=== PATIENT | male | born 1955 | race Caucasian/White ===

== ENCOUNTER 2020-09-21 15:23 | Observation (INO) | payer SELFPAY ==
--- NOTE | 2020-09-21 15:36 | ER Document Report ---
ED Medical Screen (RME) - General Chief Complaint: Numbness Stated Complaint: NUMBNESS ON LEFT SIDE OF BODY Time Seen by Provider: 09/21/20 15:26 - HPI Notes: 09/21/20 15:34 65-year-old female with past medical history of hypertension, hyperlipidemia, diabetes to the emergency department with with complaints of acute onset of left-sided numbness and tingling in his arm and leg as well as some weakness in his arm. states that this started about an hour and a half ago. She also felt like his speech was at times garbled. The patient does state that he feels like some of the weakness in his left arm has improved since his ride over here. He has never had a stroke before. He is on any blood thinners. Brief medical screening exam reveals no facial palsy, no decreased sensation with palpation of the face. No facial droop. Tongue appears to be deviated to the left. No pronator drift. Normal vjeoxo-up-avzm bilaterally. No leg drift. No dysarthria or slurred speech. Patient is alert and oriented x4. Handgrip is 5 out of 5. Strength in bilateral upper extremity and lower extremity is 5 out of 5 against resistance. He does admit to paresthesias in the left upper extremity and left lower leg. I advised charge of the patient and we sent the patient directly down to head CT. I also updated my ER attending,Dr. Lutz. Patient will be bedded directly to bed [address] NIH score of 1. I performed a brief medical screening exam on the patient determined that the patient needs further evaluation and management by main side provider. I have placed initial orders to help expedite care.
--- NOTE | 2020-09-21 15:48 | RADIOLOGY REPORT (SQ) ---
EXAM DESCRIPTION: CT HEAD WITHOUT IMAGES COMPLETED DATE/TIME: 09/21/2020 3:40 pm REASON FOR STUDY: left side weakness COMPARISON: None. TECHNIQUE: Axial images acquired through the brain without intravenous contrast. Images reviewed wi th bone, brain and subdural windows. Additional sagittal and coronal reconstructions were generated. Images stored on PACS. All CT scanners at this facility use dose modulation, iterative reconstruction, and/or weight based d osing when appropriate to reduce radiation dose to as low as reasonably achievable (ALARA). [facility]: Dose Right [facility]: CareDose [facility]: Dose Right [facility]: Teradose 4D [facility]: [employer] Technologies RADIATION DOSE: CT Rad equipment meets quality standard of care and radiation dose reduction techniq ues were employed. CTDIvol: 53.2 mGy. DLP: 1017 mGy-cm. mGy. LIMITATIONS: None. FINDINGS: VENTRICLES: Normal size and contour. CEREBRUM: No masses. No hemorrhage. No midline shift. Small lacunar infarction in the anterior mcleod b of the internal capsule on the right. No evidence for acute infarction. Normal mays/white matter d ifferentiation. No areas of low density in the white matter. CEREBELLUM: No masses. No hemorrhage. No alteration of density. No evidence for acute infarction. EXTRAAXIAL SPACES: No fluid collections. No masses. ORBITS AND GLOBE: No intra- or extraconal masses. Normal contour of globe without masses. CALVARIUM: No fracture. PARANASAL SINUSES: No fluid or mucosal thickening. SOFT TISSUES: No mass or hematoma. OTHER: No other significant finding. IMPRESSION: Old right lacunar infarction. No acute intracranial imaging findings. EVIDENCE OF ACUTE STROKE: NO. COMMENT: Quality ID # [id number]: Final reports with documentation of one or more dose reduction techniques (e.g., Automated exposure control, adjustment of the mA and/or kV according to patient size, use of iterative reconstruction technique) TECHNICAL DOCUMENTATION: JOB ID: [id number] 2010 [employer]- All Rights Reserved Reading location - IP/workstation name: [email or web address]
--- NOTE | 2020-09-21 15:55 | ER Document Report ---
ED Neuro Symptoms/Deficit - General Chief Complaint: S/S of Possible Stroke Stated Complaint: NUMBNESS ON LEFT SIDE OF BODY Time Seen by Provider: 09/21/20 15:26 - HPI Notes: Patient is a 65-year-old male with a past medical history of diabetes, hypertension, high cholesterol who presents with left upper and lower extremity tingling. Patient states symptoms began at 1:00pm. He states he began with left lower leg tingling that felt like his leg fell asleep. Then he developed left arm tingling. He states he has tingling to his upper lip. The tingling in his leg and arm have completely resolved. He states he feels still some tingling in his upper lip. He denies any speech changes. No headache or lightheadedness. No dizziness. No chest pain or shortness of breath. Does not think he has had a stroke before. He is not on any blood thinners. Patient's NIH is 1 for tingling. He states he still has some tingling to his upper lip but no numbness to his face. He is not a TPA candidate due to low NIH and resolving symptoms. - Related Data Allergies/Adverse Reactions: No Known Allergies Allergy (Unverified 09/21/20 15:41) Past Medical History - General Information source: Patient - Social History Smoking Status: Never Smoker Chew tobacco use (# tins/day): No Frequency of alcohol use: None Drug Abuse: None Family History: Reviewed & Not Pertinent Patient has homicidal ideation: No Review of Systems - Review of Systems Notes: CONSTITUTIONAL: No fever, fatigue or weight loss. SKIN: No rash. HENT: No congestion, ear pain, or sore throat. EYES: No recent vision problems or eye pain. CARDIOVASCULAR: No chest pain or edema. RESPIRATORY: No cough, shortness of breath, congestion, or wheezing. GASTROINTESTINAL: No abdominal pain, nausea, vomiting, bloody stools or diarrhea. GENITOURINARY: No dysuria. MUSCULOSKELETAL: No joint pain or swelling. NEUROLOGIC: No seizures. No headache, focal weakness or sensory changes. Positive for tingling in left upper and left lower extremity. Positive for tingling in upper lip. HEMATOLOGIC: No unusual bruising or bleeding. PSYCHIATRIC: No depression or anxiety. Physical Exam - General General appearance: Appears well Notes: VITAL SIGNS: Within normal limits. GENERAL: No acute distress, non-toxic appearance. HEAD: Normal with no signs of head trauma. EYES: EOMI, conjunctiva normal, no discharge. EARS: Hearing grossly intact. NOSE: Normal. NECK: Normal range of motion, no tenderness, supple, no lymphadenopathy, No adenopathy, no JVD. CHEST: Clear breath sounds bilaterally. No wheezes, rales, or rhonchi. CARDIAC: Regular rate and rhythm. S1 and S2, without murmurs, gallops, or rubs. VASCULAR: No Edema. Peripheral pulses normal and equal in upper extremities. ABDOMEN: Normal and soft with no tenderness, no masses MUSCULOSKELETAL: Good range of motion of all major joints. Extremities without clubbing, cyanosis or edema. NEUROLOGICAL: Alert and oriented x 3. No focal sensory or strength deficits. Speech normal. Follows commands appropriately. NIH is 1. PSYCHIATRIC: Normal Affect, judgement and mood. SKIN: Normal appearance with no rashes or lesions. Course - Re-evaluation Re-evalutation: 09/21/20 19:17 Patient states his speech is normal. He states he only has residual tingling to his upper lip. Head CT shows an old lacunar stroke which I informed him of. His is now here, she states that she thought he did have some mild speech changes but it is improving. Patient is not a TPA candidate due to low NIH and improving symptoms. I did recommend he obtain an MRI and stay in the hospital for a stroke/TIA evaluation. Patient and his are in agreement. I discussed with the hospitalist for admission. Patient continues to complain of tingling to his upper lip but no other symptoms. - Laboratory Result Diagrams: 09/21/20 15:41 09/21/20 15:41 - Diagnostic Test Radiology reviewed: Image reviewed, Reports reviewed - EKG Interpretation by Me EKG shows normal: Sinus rhythm Rate: Normal Rhythm: NSR When compared to previous EKG there are: Previous EKG unavailable ED NIH Stroke Scale - NIH Stroke Scale When completed:: Protocol *: 1. NIH scale should be completed with appropriate accompanying assessment tools. *: 2. The NIH should reflect what the patient is capable of doing and should not be coached by the clinician. 1a. Level of Consciousness: 0=Alert;keenly responsive -: 1=Drowsy -: 2=Obtunded -: 3=Coma/unresponsive or reflex to noxious stimuli. 1a. Responses: 0 1b. Orientation Questions: a. What month is it? -: b. How old are you? -: 0=Answers both questions correctly. -: 1=Answers one question correctly or patient is intubated or has orotracheal trauma. -: 2=Answers neither question correctly. 1b. Responses: 0 1c. Response to commands: a. Open and close eyes? -: b. Nut Grader and release hand? -: Credit is given despite weakness. Demonstration of task is permitted. Substitute command if hands cannot be used. -: 0=Performs both tasks correctly -: 1=Performs one task correctly -: 2=Performs neither task correctly 1c. Responses: 0 2. Gaze: Establish eye contact and instruct patient to "Follow my finger" -: 0=Normal -: 1=Partial gaze palsy. Gaze is abnormal in one or both eyes, but where forced deviation or total gaze paresis is not present. -: 2=Forced deviation or total gaze paresis. 2. Responses: 0 3. Visual Jack: Sees fingers in all four quadrants. -: 0=No visual loss. -: 1=Partial hemianopsia. -: 2=Complete hemianopsia. -: 3=Bilateral hemianopsia (including Cortical blindness) 3. Responses: 0 4. Facial Movement: Instruct patient to: -: a. Show me your teeth -: b. Raise your eyebrows -: c. Close your eyes -: d. Smile -: 0=Normal symmetrical movement -: 1=Minor paralysis (flattened nasolabial fold, asymmetry on smiling). -: 2=Partial paralysis (total or near total paralysis of lower face). -: 3=Complete paralysis of upper and lower face 4. Responses: 0 5. Motor functions (left arm): Alternate sides and extend each arm with palms down (90 degrees if sitting or 45 degrees for supine). -: 0=No drift;limb holds for full 10 seconds. -: 1=Drift; limb holds but drifts down before full 10 seconds, but does not hit bed. -: 2=Some effort against gravity; limb cannot get to or maintain position. -: 3=No effort against gravity; limb falls. -: 4=No movement. -: UN=Amputation, joint fusion, explain in comments. 5. Responses (left arm): 0 5. Motor Functions (right arm): Alternate sides and extend each arm with palms down (90 degrees if sitting or 45 degrees for supine). -: 0=No drift;limb holds for full 10 seconds. -: 1=Drift; limb holds but drifts down before full 10 seconds, but does not hit bed. -: 2=Some effort against gravity; limb cannot get to or maintain position. -: 3=No effort against gravity; limb falls. -: 4=No movement. -: UN=Amputation, joint fusion, explain in comments. 5. Responses (right arm): 0 6. Motor Functions (left leg): With patient lying supine, alternate sides and extend each leg (30 degrees always while supine). -: 0=No drift, leg holds position for full 5 seconds -: 1=Drift; leg falls before full 5 seconds but does not hit bed. -: 2=Some effort against gravity, leg falls to bed but some effort against gravity. -: 3=No effort against gravity, leg falls to bed immediately. -: 4=No movement. -: UN=Amputation, joint fusion; explain in comments. 6. Responses (left leg): 0 6. Motor Functions (right leg): With patient lying supine, alternate sides and extend each leg (30 degrees always while supine). -: 0=No drift, leg holds position for full 5 seconds -: 1=Drift; leg falls before full 5 seconds but does not hit bed. -: 2=Some effort against gravity, leg falls to bed but some effort against gravity. -: 3=No effort against gravity, leg falls to bed immediately. -: 4=No movement. -: UN=Amputation, joint fusion; explain in comments. 6. Responses (right leg): 0 7. Limb Ataxia: With eyes open instruct patient to: -: a. "Touch your finger to your nose". -: b. "Touch your heel to your mcdonald" -: 0=Absent -: 1=Present in one limb. -: 2=Present in two limbs. -: UN=Amputation or joint fusion; explain in comments. 7. Responses: 0 8. Sensory: Test sensation using pinprick or noxious stimuli. Test as many body parts as possible. -: 0=Normal;no sensory loss -: 1=Mile to moderate sensory loss (patient feels pin prick but is less sharp on affected side). -: 2=Severe or total sensory loss. 8. Responses: 1 9. Best Language: Instruct patient to: -: a. "Describe what you see in this picture." -: b. "Name the items in this picture." -: c. "Read these sentences." -: 0=No aphasia, normal -: 1=Mild to moderate aphasia. -: 2=Severe aphasia -: 3=Mute, global aphasia, no usable speech or auditory comprehension. 9. Responses: 0 10. Articulation, Dysarthia: Instruct patient to: -: "Read these words" or "Repeat these words" -: 0=Normal -: 1=Mild to moderate; patient may slur some words but can be understood without difficulty. -: 2=Severe; patients speech so slurred as to be unintelligible in the absence of dysphasia. -: UN=Intubated or other physical barrier, explain in comments. 10. Responses: 0 11. Extinction or inattention: 0=No abnormality -: 1= Visual, tactile, auditory, spatial, or personal inattention or extinction to bilateral simulation in one or the sensory modalities. -: 2=Profound deidra-inattention or deidra-inattention to more than one modality; does not recognize own hand. 11. Responses: 0 Total Score: 1 Discharge - Discharge Clinical Impression: Stroke-like symptom, Paresthesia Disposition: ADMITTED OBSERVATION Admitting Provider: Gabriella (Hospitalist) Unit Admitted: Telemetry
[2020-09-21 16:12] LABS: ABSOLUTE EOSINOPHILS # (AUTO) 0.1 10^3/uL (0.0-0.6); ABSOLUTE LYMPHOCYTES (AUTO) 1.4 10^3/uL (0.5-4.7); ABSOLUTE MONOCYTES (AUTO) 0.6 10^3/uL (0.1-1.4); ABSOLUTE NEUT (AUTO) 5.2 10^3/uL (1.7-8.2); BASOPHILS % (AUTO) 0.6 % (0-2); EOSINOPHILS % (AUTO) 1.2 % (0-6); HEMATOCRIT 43.2 % (37.9-51.0); HEMOGLOBIN 14.8 g/dL (13.5-17.0); LYMPHOCYTES % (AUTO) 19.4 % (13-45); MEAN CORPUSCULAR HEMOGLOBIN 28.1 pg (27.0-33.4); MEAN CORPUSCULAR HGB CONC 34.3 g/dL (32.0-36.0); MEAN CORPUSCULAR VOLUME 82 fl (80-97); MONOCYTES % (AUTO) 8.1 % (3-13); PLATELET COUNT 200 10^3/uL (150-450); RED BLOOD COUNT 5.27 10^6/uL (4.35-5.55); RED CELL DISTRIBUTION WIDTH 13.6 % (11.5-14.0); SEGMENTED NEUTROPHILS % (AUTO) 70.7 % (42-78); TOTAL CELLS COUNTED % (AUTO) 100 %; WHITE BLOOD COUNT 7.3 10^3/uL (4.0-10.5)
[2020-09-21 16:19] LABS: INTERNATIONAL RATION (INR) 0.97; PROTHROMBIN TIME 13.1 SEC (11.4-15.4)
[2020-09-21 16:20] LABS: PARTIAL THROMBOPLASTIN TIME 30.8 SEC (23.5-35.8)
[2020-09-21 16:35] LABS: ALBUMIN 4.7 g/dL (3.5-5.0); ALKALINE PHOSPHATASE 48 U/L (38-126); ANION GAP 9 (5-19); ASPARTATE AMINO TRANSFERASE 34 U/L (17-59); BILIRUBIN,DIRECT 0.2 mg/dL (0.0-0.4); BILIRUBIN,TOTAL 0.5 mg/dL (0.2-1.3); BLOOD UREA NITROGEN 19 mg/dL (7-20); CALCIUM 9.7 mg/dL (8.4-10.2); CARBON DIOXIDE 29 mmol/L (22-30); CHLORIDE 99 mmol/L (98-107); GLUCOSE 208 mg/dL (75-110); POTASSIUM 3.8 mmol/L (3.6-5.0); TOTAL PROTEIN 7.8 g/dL (6.3-8.2)
--- NOTE | 2020-09-21 16:44 | RADIOLOGY REPORT (SQ) ---
EXAM DESCRIPTION: CHEST SINGLE VIEW IMAGES COMPLETED DATE/TIME: 09/21/2020 4:07 pm REASON FOR STUDY: LEFT SIDE WEAKNESS COMPARISON: None. EXAM PARAMETERS: NUMBER OF VIEWS: One view. TECHNIQUE: Single frontal radiographic view of the chest acquired. RADIATION DOSE: NA LIMITATIONS: None. FINDINGS: LUNGS AND PLEURA: No opacities, masses or pneumothorax. No pleural effusion. MEDIASTINUM AND HILAR STRUCTURES: No masses. Contour normal. HEART AND VASCULAR STRUCTURES: Heart normal in size. Normal vasculature. BONES: No acute findings. HARDWARE: None in the chest. OTHER: No other significant finding. IMPRESSION: NO ACUTE RADIOGRAPHIC FINDING IN THE CHEST. TECHNICAL DOCUMENTATION: JOB ID: [id number] 2010 [employer]- All Rights Reserved Reading location - IP/workstation name: [email or web address]
--- NOTE | 2020-09-21 17:46 | EKG REPORT ---
SEVERITY:- NORMAL ECG - SINUS RHYTHM : Confirmed by: Fermín Neil MD 21-Sep-2020 17:45:37
[2020-09-21] MEDS ORDERED: ACETAMINOPHEN 325 MG TABLET PO PRN (18:09)
[2020-09-21] MEDS ORDERED: ONDANSETRON HCL INJ/PF 4 MG/2 ML SDV IV PRN (18:09)
[2020-09-21] MEDS ORDERED: ONDANSETRON 4 MG TAB.RAPDIS PO PRN (18:09)
[2020-09-21] MEDS ORDERED: CLOPIDOGREL BISULFATE 75 MG TABLET PO SCH (18:15)
[2020-09-21] MEDS ORDERED: CLOPIDOGREL BISULFATE 300 MG TABLET PO ONE (18:19)
--- NOTE | 2020-09-21 18:29 | PDOC H&P ---
History of Present Illness Admission Date/PCP: 09/21/20 18:09 History of Present Illness: LIBAN PRETTY is a 65 year old male with past medical history significant for HTN, HLD, T2DM, LAVELL on CPAP who presents ED with a 1 day history of progressive slurred speech/left facial numbness and droop/LUE and LLE numbness and weakness/ataxia. Patient and his deny him ever having these symptoms in the past. On arrival to the ED he underwent a dry head CT which showed an old lacunar infarct but nothing acute. MRI is ordered and pending. His sugars were initially approximately 200 but patient states his blood sugars generally well controlled and denies any significant drops or rises in blood sugar recently. He only takes Metformin for his diabetes. He denies any sick contacts or fever/chills/nausea/vomiting/pain. EKG showed normal sinus rhythm. Chest x-ray showed no acute findings. Patient takes a daily 81 mg aspirin and denies missing any doses of this. He denies history of A. fib and is not on anticoagulant. Patient mated for further work-up of possible stroke. Past Medical History Cardiac Medical History: Reports: Hyperlipidema, Hypertension Pulmonary Medical History: Reports: Sleep Apnea Endocrine Medical History: Reports: Diabetes Mellitus Type 2 Past Surgical History Past Surgical History: Reports: Other - Uvulopalatopharyngoplasty Social History Information Source: Patient, Relative, Emergency Med Personnel Lives with: Family Smoking Status: Never Smoker Electronic Cigarette use?: No Frequency of Alcohol Use: None Hx Recreational Drug Use: No - Advance Directive Resuscitation Status: Full Code Surrogate healthcare decision maker:: Admitting diagnosis: Suspected acute CVA All aspects of code status discussed with patient/POA including cardioversion, chest compressions, and intubation and the patient/POA indicated they wish to be full code MPOA is designated as: Lynette Time spent: Greater than 16 minutes Family History Family History: Reviewed & Not Pertinent, Malignancy Parental Family History Reviewed: Yes Children Family History Reviewed: Yes Sibling(s) Family History Reviewed.: Yes Medication/Allergy Allergies/Adverse Reactions: No Known Allergies Allergy (Unverified 09/21/20 15:41) Review of Systems All systems: reviewed and no additional remarkable complaints except as stated - Per HPI otherwise negative Physical Exam Vital Signs: Temp Pulse Resp BP Pulse Ox 98.6 F 70 16 138/83 H 99 09/21/20 15:51 09/21/20 15:24 09/21/20 18:01 09/21/20 18:01 09/21/20 15:24 Intake & Output 09/20/20 09/21/20 09/22/20 06:59 06:59 06:59 Weight 130.9 kg Exam: General appearance: PRESENT: no acute distress, well-developed, well-nourished, morbidly obese white male with BMI 38.1 Head exam: PRESENT: atraumatic, normocephalic Eye exam: PRESENT: conjunctiva pink. ABSENT: scleral icterus Mouth exam: PRESENT: moist Respiratory exam: PRESENT: clear to auscultation sherley. ABSENT: rales, rhonchi, wheezes Cardiovascular exam: PRESENT: RRR. ABSENT: diastolic murmur, rubs, systolic murmur GI/Abdominal exam: PRESENT: normal bowel sounds, soft. ABSENT: distended, guarding, mass, organolmegaly, rebound, tenderness Neurological exam: PRESENT: alert, awake, oriented to person, oriented to place, oriented to time, oriented to situation; cranial nerves II through XII grossly intact except mild subtle left facial droop noted corner of his mouth and mild slurred speech, strength 5/5 upper and lower extremities equal bilaterally, sensation grossly intact with the exception of his upper lip which is numb Psychiatric exam: PRESENT: appropriate affect, normal mood Skin exam: PRESENT: dry, intact, warm Results Laboratory Results: 09/21/20 15:41 09/21/20 15:41 09/21/20 09/21/20 15:41 15:41 WBC 7.3 RBC 5.27 Hgb 14.8 Hct 43.2 MCV 82 MCH 28.1 MCHC 34.3 RDW 13.6 Plt Count 200 Seg Neutrophils % 70.7 Sodium 136.8 L Potassium 3.8 Chloride 99 Carbon Dioxide 29 Anion Gap 9 BUN 19 Creatinine 1.23 Est GFR ( Amer) > 60 Glucose 208 H Calcium 9.7 Total Bilirubin 0.5 AST 34 Alkaline Phosphatase 48 Total Protein 7.8 Albumin 4.7 09/21/20 15:41 Troponin I < 0.012 Impressions: Chest X-Ray 09/21/20 00:00 IMPRESSION: NO ACUTE RADIOGRAPHIC FINDING IN THE CHEST. Head CT 09/21/20 15:26 IMPRESSION: Old right lacunar infarction. No acute intracranial imaging findings. EVIDENCE OF ACUTE STROKE: NO. Assessment and Plan - Diagnosis (1) Stroke-like symptom Is this a current diagnosis for this admission?: Yes Plan: -Admitted for CVA rule out -NIHSS on Admit: 0 per ED note -tPA not given, outside of time window -ASA, Statin, Plavix as patient was already on 81 mg aspirin daily prior to event -Lipid Panel -Carotid PVL -TTE -CT Head old lacunar stroke, no acute findings -MRI Brain pending -Permissive HTN goal < 220/120 for 48hrs post-sx's onset or until CVA ruled out (2) HTN (hypertension) Is this a current diagnosis for this admission?: Yes Plan: Permissive hypertension as above (3) HLD (hyperlipidemia) Is this a current diagnosis for this admission?: Yes Plan: Statin (4) T2DM (type 2 diabetes mellitus) Qualifiers: Diabetes mellitus lobsterman insulin use: without lobsterman use Diabetes mellitus complication status: with hyperglycemia Qualified Code(s): E11.65 - Type 2 diabetes mellitus with hyperglycemia Is this a current diagnosis for this admission?: Yes Plan: T2DM -accucheks, sliding scale insulin -long acting insulin indicated for HgA1C of 10 or greater -diet counseling -outpt FU with PCP Suspect diabetes related CKD 2 (5) Morbid obesity Is this a current diagnosis for this admission?: Yes Plan: Needs weight loss, BMI 38.1 (6) LAVELL on CPAP Is this a current diagnosis for this admission?: Yes Plan: Okay for patient to use his home CPAP or hours whichever he chooses - Time Time Spent with patient: 35 or more minutes Medications reviewed and adjusted accordingly: Yes Anticipated Discharge Disposition: Home with Home Health Anticipated Discharge Timeframe: within 48 hours
[2020-09-21 18:40] LABS: APPEARANCE,URINE CLEAR; BILIRUBIN,URINE NEGATIVE (NEGATIVE); COLOR,URINE YELLOW; GLUCOSE, URINE 150 mg/dL (NEGATIVE); KETONES,URINE NEGATIVE (NEGATIVE); LEUKOCYTE ESTERASE,URINE NEGATIVE (NEGATIVE); NITRITE,URINE NEGATIVE (NEGATIVE); PROTEIN,URINE NEGATIVE (NEGATIVE); URINE SPECIFIC GRAVITY 1.018; UROBILINOGEN,URINE NEGATIVE mg/dL (<2.0)
--- NOTE | 2020-09-21 18:56 | RADIOLOGY REPORT (SQ) ---
EXAM DESCRIPTION: MRI HEAD WITHOUT IMAGES COMPLETED DATE/TIME: 09/21/2020 6:42 pm REASON FOR STUDY: left sided tingling COMPARISON: None. TECHNIQUE: Multiplanar imaging includes non-contrasted T1, T2, FLAIR, and diffusion with ADC map seq uences. Images stored on PACS. LIMITATIONS: None. FINDINGS: ANATOMY: No anomalies. Normal vascular flow voids. Pituitary fossa normal. CSF SPACES: Normal in size and contour. No hemorrhage. CEREBRUM: Sulci and gyri normal in size and contour. There is an old lacunar infarct in the region o f the head of the caudate nucleus on the right. Scattered small areas of increased white matter sign al on FLAIR imaging. No evidence of hemorrhage, mass, or extraaxial fluid collection. POSTERIOR FOSSA: No signal alteration. No hemorrhage. No edema, masses or mass effect. Internal lang tory canals, cerebello-pontine angles, mastoids normal. DIFFUSION IMAGING: There is focal area of abnormal diffusion in the right thalamus. ORBITS: No masses. Globes normal. PARANASAL SINUSES: No fluid levels. Mucosa normal. OTHER: No other significant finding. IMPRESSION: Chronic ischemic changes with an acute/subacute infarction in the right thalamus. EVIDENCE OF ACUTE STROKE: NO. TECHNICAL DOCUMENTATION: JOB ID: [id number] 2010 [employer]- All Rights Reserved Reading location - IP/workstation name: [email or web address]
[2020-09-21] MEDS: INSULIN LISPRO 100 UNIT/ML 3 ML VIAL SUBCUT SCH (21:49)
[2020-09-21] MEDS ORDERED: ATORVASTATIN CALCIUM 40 MG TABLET PO SCH (22:00)
--- NOTE | 2020-09-22 00:29 | RADIOLOGY REPORT (SQ) ---
EXAM DESCRIPTION: CAROTID DOPPLER IMAGES COMPLETED DATE/TIME: 09/21/2020 8:16 pm REASON FOR STUDY: vascular disease COMPARISON: None. TECHNIQUE: Grayscale ultrasound, Doppler velocity and spectra, and color Doppler images acquired of the extra-cranial carotid and vertebral arteries. Images stored on PACS. LIMITATIONS: None. FINDINGS: RIGHT CAROTID CCA Velocities: Within normal limits. ICA Velocities Peak systolic 0.63 m/s. End diastolic 0.34 m/s. Proximal ICA/CCA peak systolic ratio 0.6. Spectra normal. No significant plaque. LEFT CAROTID CCA Velocities: Within normal limits. ICA Velocities Peak systolic 0.68 m/s. End diastolic 0.33 m/s. Proximal ICA/CCA peak systolic ratio 1.1. Spectra normal. No significant plaque. VERTEBRAL ARTERIES: Antegrade flow. Normal waveforms. SUBCLAVIAN ARTERIES: No finding. OTHER: No other significant finding. IMPRESSION: NO HEMODYNAMICALLY SIGNIFICANT STENOSIS. COMMENT: Quality ID #[id number]: Velocity criteria are extrapolated from the diameter data as defined by t he Society of Radiologists in Ultrasound Consensus Conference. Radiology 2003: 229; 340-346. TECHNICAL DOCUMENTATION: JOB ID: [id number] 2010 [employer]- All Rights Reserved Reading location - IP/workstation name: [email or web address]
[2020-09-22 05:50] LABS: ABSOLUTE EOSINOPHILS # (AUTO) 0.1 10^3/uL (0.0-0.6); ABSOLUTE LYMPHOCYTES (AUTO) 1.5 10^3/uL (0.5-4.7); ABSOLUTE MONOCYTES (AUTO) 0.6 10^3/uL (0.1-1.4); ABSOLUTE NEUT (AUTO) 3.7 10^3/uL (1.7-8.2); BASOPHILS % (AUTO) 0.8 % (0-2); EOSINOPHILS % (AUTO) 2.1 % (0-6); HEMATOCRIT 43.8 % (37.9-51.0); LYMPHOCYTES % (AUTO) 25.6 % (13-45); MEAN CORPUSCULAR HEMOGLOBIN 27.9 pg (27.0-33.4); MEAN CORPUSCULAR HGB CONC 34.3 g/dL (32.0-36.0); MEAN CORPUSCULAR VOLUME 82 fl (80-97); MONOCYTES % (AUTO) 9.6 % (3-13); PLATELET COUNT 183 10^3/uL (150-450); RED BLOOD COUNT 5.37 10^6/uL (4.35-5.55); RED CELL DISTRIBUTION WIDTH 13.7 % (11.5-14.0); SEGMENTED NEUTROPHILS % (AUTO) 61.9 % (42-78); TOTAL CELLS COUNTED % (AUTO) 100 %
[2020-09-22 06:10] LABS: ANION GAP 10 (5-19); BLOOD UREA NITROGEN 17 mg/dL (7-20); CALCIUM 9.6 mg/dL (8.4-10.2); CARBON DIOXIDE 27 mmol/L (22-30); CHLORIDE 101 mmol/L (98-107); CHOLESTEROL 225.01 mg/dL (0-200); GLUCOSE 132 mg/dL (75-110); POTASSIUM 4.1 mmol/L (3.6-5.0); TRIGLYCERIDES 243 mg/dL (<150)
[2020-09-22 06:20] LABS: DIRECT LDL 150 mg/dL (<100)
[2020-09-22 06:34] LABS: VLDL CHOLESTEROL 48.6 mg/dL (10-31)
--- NOTE | 2020-09-22 09:11 | XCELERA REPORT ---
[address] [address] Transthoracic Echocardiogram Report Name: LIBAN PRETTY Age: 65 yrs Gender: Male : 1955 Patient Status: Inpatient Patient Location: [place] [address]^A Study Date: 09/21/2020 07:13 PM History: BRITNEY Height: 73 in Weight: 288 lb BSA: 2.5 m2 Procedure: A complete two-dimensional transthoracic echocardiogram was performed (2D, M-mode, spectral and color flow Doppler). The study was technically difficult with many images being suboptimal in quality. Reason For Study: CVA Previous Evaluation: No previous studies were available. History: CVA. Ordering Physician: MARIANN SAAB Performed By: Miri Garcia Interpretation Summary Study quality precludes visual assessment of heart valves, By doppler there is no significant lesion. The study was technically difficult with many images being suboptimal in quality. Left ventricular systolic function is normal. The Ejection Fraction estimate is 55-60% The right ventricle is normal in size and function. There is no aortic valve stenosis Study quality precludes visual assessment of heart valves, By doppler there is no significant lesion. There is no pericardial effusion. MMode/2D Measurements & Calculations RVDd: 3.0 cm LVIDd: 5.4 cm FS: 34.0 % Ao root diam: 3.7 cm IVSd: 1.2 cm LVIDs: 3.5 cm EDV(Teich): 139.0 ml Ao root area: 10.6 cm2 LVPWd: 1.1 cm ESV(Teich): 52.2 ml LA dimension: 4.1 cm EF(Teich): 62.4 % Doppler Measurements & Calculations MV E max felisha: MV P1/2t max felisha: Ao V2 max: LV V1 max P.2 cm/sec 85.6 cm/sec 196.8 cm/sec 4.1 mmHg MV A max felisha: MV P1/2t: 68.4 msec Ao max PG: LV V1 mean P.4 cm/sec MVA(P1/2t): 3.2 cm2 15.5 mmHg 2.1 mmHg MV E/A: 1.1 MV dec slope: Ao V2 mean: LV V1 max: 130.9 cm/sec 101.7 cm/sec 366.3 cm/sec2 Ao mean PG: LV V1 mean: MV dec time: 0.25 sec 7.9 mmHg 68.6 cm/sec Ao V2 VTI: 43.8 cm LV V1 VTI: 25.3 cm PA V2 max: MV P1/2t-pr_phl: 98.7 cm/sec 68.4 msec PA max P.9 mmHg Left Ventricle The left ventricle is mildly dilated. There is moderate concentric left ventricular hypertrophy. Left ventricular systolic function is normal. The Ejection Fraction estimate is 55-60%. Doppler measurements suggest pseudonormalized left ventricular relaxation, which is associated with grade II/IV or mild to moderate diastolic dysfunction. Regional wall motion abnormalities cannot be excluded due to limited visualization. There is no thrombus. Right Ventricle The right ventricle is normal in size and function. Atria The right atrium is normal. The left atrium is mildly dilated. The interatrial septum is intact with no evidence for an atrial septal defect. There is no Doppler evidence for an interatrial shunt. Mitral Valve The mitral valve is grossly normal. There is no mitral regurgitation noted. Aortic Valve The aortic valve is not well visualized secondary to technical limitations. There is no aortic valve stenosis. No aortic regurgitation is present. Tricuspid Valve The tricuspid valve is not well visualized secondary to technical limitations. Poorly studied. Pulmonic Valve The pulmonic valve is not well visualized. There is no pulmonic valvular stenosis. There is a trace amount of pulmonic regurgitation. Great Vessels The aortic root is normal size. The inferior vena cava appeared normal and decreased < 50% with respiration (RAP 10-15 mmHg). Effusions There is no pericardial effusion. : MARIANN SAAB Anil
[2020-09-22] MEDS: INSULIN LISPRO 100 UNIT/ML 3 ML VIAL SUBCUT SCH ×3 (09:20→18:03)
[2020-09-22] MEDS ORDERED: ENOXAPARIN SODIUM INJ 40 MG/0.4 ML DISP.SYRIN SUBCUT SCH (10:00)
[2020-09-22] MEDS ORDERED: ASPIRIN 81 MG TABLET, CHEWABLE PO SCH (10:00)
[2020-09-22 17:02] VITALS: BP 135/85
--- NOTE | 2020-09-22 17:24 | PDOC DISCHARGE SUMMARY ---
Impression - Admit/DC Date/PCP Admission Date/Primary Care Provider: 09/21/20 18:09 Discharge Date: 09/22/20 - Discharge Diagnosis (1) Stroke-like symptom Is this a current diagnosis for this admission?: Yes (2) HTN (hypertension) Is this a current diagnosis for this admission?: Yes (3) HLD (hyperlipidemia) Is this a current diagnosis for this admission?: Yes (4) T2DM (type 2 diabetes mellitus) Is this a current diagnosis for this admission?: Yes (5) Morbid obesity Is this a current diagnosis for this admission?: Yes (6) LAVELL on CPAP Is this a current diagnosis for this admission?: Yes - Assessment Summary: LIBAN PRETTY is a 65 year old male with past medical history significant for HTN, HLD, T2DM, LAVELL on CPAP who presents ED with a 1 day history of progressive slurred speech/left facial numbness and droop/LUE and LLE numbness and weakness/ataxia. Patient and his deny him ever having these symptoms in the past. On arrival to the ED he underwent a dry head CT which showed an old lacunar infarct but nothing acute. MRI is ordered and pending. His sugars were initially approximately 200 but patient states his blood sugars generally well controlled and denies any significant drops or rises in blood sugar recently. He only takes Metformin for his diabetes. He denies any sick contacts or fever/chills/nausea/vomiting/pain. EKG showed normal sinus rhythm. Chest x-ray showed no acute findings. Patient takes a daily 81 mg aspirin and denies missing any doses of this. He denies history of A. fib and is not on anticoagulant. Patient mated for further work-up of possible stroke. 09/22/2020 Patient well overnight but still has some residual tingling in his left side. Echocardiogram showed normal LV systolic function but did show grade 2/4 diastolic dysfunction. Patient's MRI of his brain showed he has an acute/subacute right thalamic infarct. I discussed the findings with the patient and his . His blood pressure is controlled without medications currently. Patient will be on aspirin and Plavix combined for 21 days and then continue on Plavix alone. It seems that he has failed aspirin monotherapy given he has an acute stroke despite taking this daily. Started atorvastatin. Pt and wish to be DC to home today due to financial constraints. I instructed them to start the patient's blood pressure medications tomorrow once he is at least 48 hours out from his acute stroke. His blood pressure is actually been quite well controlled today with systolic blood pressure in the low 120s and 110s. I have asked case management to attempt to get the patient a daysi visit for home health physical therapy if this is possible. I have also checked on the affordability of the patient's medications I will prescribe him and confirm that he can afford these. I gave him coupons that I found online for these to help with the cost. Patient must follow-up with his PCP within 7 days and he needs to monitor his blood pressure at home closely over the next few days and log each value he sees on the blood pressure cuff. Patient voiced understanding with the plan and are in full agreement. (1) Right acute thalamic CVA Is this a current diagnosis for this admission?: Yes Plan: -Admitted for CVA rule out -NIHSS on Admit: 0 per ED note -tPA not given, outside of time window -ASA, Statin, Plavix as patient was already on 81 mg aspirin daily prior to event; DAPT for 21 days then stop aspirin and continue Plavix -Lipid Panel showed notably elevated LDL and triglycerides, started on atorvastatin -Carotid PVL showed no significant stenoses -TTE: Normal systolic function with good EF, grade 2 diastolic dysfunction consistent with chronic diastolic CHF likely due to longstanding hypertension -CT Head old lacunar stroke, no acute findings -MRI Brain showed old lacunar stroke and acute/subacute right thalamic stroke -Permissive HTN goal < 220/120 for 48hrs post-sx's onset or until CVA ruled out Restart home blood pressure medications on 09/23, blood pressure well controlled and patient (2) HTN (hypertension) Is this a current diagnosis for this admission?: Yes Plan: Permissive hypertension as above (3) HLD (hyperlipidemia) Is this a current diagnosis for this admission?: Yes Plan: Statin (4) T2DM (type 2 diabetes mellitus) Qualifiers: Diabetes mellitus care home insulin use: without buttermaker helper use Diabetes mellitus complication status: with hyperglycemia Qualified Code(s): E11.65 - Type 2 diabetes mellitus with hyperglycemia Is this a current diagnosis for this admission?: Yes Plan: T2DM -accucheks, sliding scale insulin -long acting insulin indicated for HgA1C of 10 or greater -diet counseling -outpt FU with PCP Suspect diabetes related CKD 2 (5) Morbid obesity Is this a current diagnosis for this admission?: Yes Plan: Needs weight loss, BMI 38.1 (6) LAVELL on CPAP Is this a current diagnosis for this admission?: Yes Plan: Okay for patient to use his home CPAP or hours whichever he chooses - Additional Information Resuscitation Status: Full Code Discharge Diet: As Tolerated, Cardiac, Diabetic Discharge Activity: Activity As Tolerated, Balance Activity w/Rest Referrals: [facility] [NO LOCAL MD] - Prescriptions: Aspirin [Aspirin 81 mg Chewable Tablet] 81 mg PO DAILY 21 Days #21 tab.chew Atorvastatin Calcium [Lipitor 40 mg Tablet] 40 mg PO QHS #30 tablet Clopidogrel Bisulfate [Plavix 75 mg Tablet] 75 mg PO DAILY #30 tablet Home Medications: Lisinopril/Hydrochlorothiazide [Lisinopril-Hctz 10-12.5 mg Tab] 1 each PO QPM 09/21/20 Metformin HCl [Metformin HCl ER] 500 mg PO BID 09/21/20 Aspirin [Aspirin 81 mg Chewable Tablet] 81 mg PO DAILY 21 Days #21 tab.chew 09/22/20 Atorvastatin Calcium [Lipitor 40 mg Tablet] 40 mg PO QHS #30 tablet 09/22/20 Clopidogrel Bisulfate [Plavix 75 mg Tablet] 75 mg PO DAILY #30 tablet 09/22/20 History of Present Illiness History of Present Illness: LIBAN PRETTY is a 65 year old male with past medical history significant for HTN, HLD, T2DM, LAVELL on CPAP who presents ED with a 1 day history of progressive slurred speech/left facial numbness and droop/LUE and LLE numbness and weakness/ataxia. Patient and his deny him ever having these symptoms in the past. On arrival to the ED he underwent a dry head CT which showed an old lacunar infarct but nothing acute. MRI is ordered and pending. His sugars were initially approximately 200 but patient states his blood sugars generally well controlled and denies any significant drops or rises in blood sugar recently. He only takes Metformin for his diabetes. He denies any sick contacts or fever/chills/nausea/vomiting/pain. EKG showed normal sinus rhythm. Chest x-ray showed no acute findings. Patient takes a daily 81 mg aspirin and denies missing any doses of this. He denies history of A. fib and is not on anticoagulant. Patient mated for further work-up of possible stroke. Physical Exam Vital Signs: Temp Pulse Resp BP Pulse Ox 98.2 F 68 18 135/85 H 98 09/22/20 15:30 09/22/20 15:30 09/22/20 15:30 09/22/20 15:30 09/22/20 15:30 Intake & Output 09/21/20 09/22/20 09/23/20 06:59 06:59 06:59 Intake Total 480 Balance 480 Weight 123.9 kg Exam: General appearance: PRESENT: no acute distress, well-developed, well-nourished, morbidly obese white male with BMI 38.1, states he would very much like to be discharged today and he feels quite well Head exam: PRESENT: atraumatic, normocephalic Eye exam: PRESENT: conjunctiva pink. ABSENT: scleral icterus Mouth exam: PRESENT: moist Respiratory exam: PRESENT: clear to auscultation sherley. ABSENT: rales, rhonchi, wheezes Cardiovascular exam: PRESENT: RRR. ABSENT: diastolic murmur, rubs, systolic murmur GI/Abdominal exam: PRESENT: normal bowel sounds, soft. ABSENT: distended, guarding, mass, organolmegaly, rebound, tenderness Neurological exam: PRESENT: alert, awake, oriented to person, oriented to place, oriented to time, oriented to situation; cranial nerves II through XII grossly intact except mild persistent but gradually improving subtle left facial droop noted corner of his mouth and mild slurred speech, strength 5/5 upper and lower extremities equal bilaterally, sensation grossly intact with the exception of his upper lip which is very mildly numb Psychiatric exam: PRESENT: appropriate affect, normal mood Skin exam: PRESENT: dry, intact, warm Results Laboratory Results: WBC 6.0 10^3/uL (4.0-10.5) 09/22/20 05:01 RBC 5.37 10^6/uL (4.35-5.55) 09/22/20 05:01 Hgb 15.0 g/dL (13.5-17.0) 09/22/20 05:01 Hct 43.8 % (37.9-51.0) 09/22/20 05:01 MCV 82 fl (80-97) 09/22/20 05:01 MCH 27.9 pg (27.0-33.4) 09/22/20 05:01 MCHC 34.3 g/dL (32.0-36.0) 09/22/20 05:01 RDW 13.7 % (11.5-14.0) 09/22/20 05:01 Plt Count 183 10^3/uL (150-450) 09/22/20 05:01 Lymph % (Auto) 25.6 % (13-45) 09/22/20 05:01 [place] % (Auto) 9.6 % (3-13) 09/22/20 05:01 Eos % (Auto) 2.1 % (0-6) 09/22/20 05:01 Baso % (Auto) 0.8 % (0-2) 09/22/20 05:01 Absolute Neuts (auto) 3.7 10^3/uL (1.7-8.2) 09/22/20 05:01 Absolute Lymphs (auto) 1.5 10^3/uL (0.5-4.7) 09/22/20 05:01 Absolute Monos (auto) 0.6 10^3/uL (0.1-1.4) 09/22/20 05:01 Absolute Eos (auto) 0.1 10^3/uL (0.0-0.6) 09/22/20 05:01 Absolute Basos (auto) 0.0 10^3/uL (0.0-0.2) 09/22/20 05:01 Seg Neutrophils % 61.9 % (42-78) 09/22/20 05:01 PT 13.1 SEC (11.4-15.4) 09/21/20 15:41 INR 0.97 09/21/20 15:41 APTT 30.8 SEC (23.5-35.8) 09/21/20 15:41 Sodium 138.1 mmol/L (137-145) 09/22/20 05:01 Potassium 4.1 mmol/L (3.6-5.0) 09/22/20 05:01 Chloride 101 mmol/L (98-107) 09/22/20 05:01 Carbon Dioxide 27 mmol/L (22-30) 09/22/20 05:01 Anion Gap 10 (5-19) 09/22/20 05:01 BUN 17 mg/dL (7-20) 09/22/20 05:01 Creatinine 1.02 mg/dL (0.52-1.25) 09/22/20 05:01 Est GFR ( Amer) > 60 (>60) 09/22/20 05:01 Est GFR (MDRD) Non-Af > 60 (>60) 09/22/20 05:01 Glucose 132 mg/dL (75-110) H 09/22/20 05:01 POC Glucose 235 mg/dL (70-110) H 09/22/20 15:33 Hemoglobin A1c % 7.2 % (4.7-6.0) H 09/22/20 05:01 Calcium 9.6 mg/dL (8.4-10.2) 09/22/20 05:01 Phosphorus 5.0 mg/dL (2.5-4.5) H 09/22/20 05:01 Magnesium 2.1 mg/dL (1.6-2.3) 09/22/20 05:01 Total Bilirubin 0.5 mg/dL (0.2-1.3) 09/21/20 15:41 Direct Bilirubin 0.2 mg/dL (0.0-0.4) 09/21/20 15:41 Neonat Total Bilirubin Not Reportable 09/21/20 15:41 Neonat Direct Bilirubin Not Reportable 09/21/20 15:41 Neonat Indirect Bili Not Reportable 09/21/20 15:41 AST 34 U/L (17-59) 09/21/20 15:41 ALT 49 U/L (<50) 09/21/20 15:41 Alkaline Phosphatase 48 U/L (38-126) 09/21/20 15:41 Troponin I < 0.012 ng/mL 09/21/20 15:41 Total Protein 7.8 g/dL (6.3-8.2) 09/21/20 15:41 Albumin 4.7 g/dL (3.5-5.0) 09/21/20 15:41 Triglycerides 243 mg/dL (<150) H 09/22/20 05:01 Cholesterol 225.01 mg/dL (0-200) H 09/22/20 05:01 LDL Cholesterol Direct 150 mg/dL (<100) H 09/22/20 05:01 VLDL Cholesterol 48.6 mg/dL (10-31) H 09/22/20 05:01 HDL Cholesterol 41 mg/dL (>40) 09/22/20 05:01 TSH 4.41 uIU/mL (0.47-4.68) 09/22/20 05:01 Urine Color YELLOW 09/21/20 18:02 Urine Appearance CLEAR 09/21/20 18:02 Urine pH 5.0 (5.0-9.0) 09/21/20 18:02 Ur Specific [place] 1.018 09/21/20 18:02 Urine Protein NEGATIVE mg/dL (NEGATIVE) 09/21/20 18:02 Urine Glucose (UA) 150 mg/dL (NEGATIVE) H 09/21/20 18:02 Urine Ketones NEGATIVE mg/dL (NEGATIVE) 09/21/20 18:02 Urine Blood NEGATIVE (NEGATIVE) 09/21/20 18:02 Urine Nitrite NEGATIVE (NEGATIVE) 09/21/20 18:02 Urine Bilirubin NEGATIVE (NEGATIVE) 09/21/20 18:02 Urine Urobilinogen NEGATIVE mg/dL (<2.0) 09/21/20 18:02 Ur Leukocyte Esterase NEGATIVE (NEGATIVE) 09/21/20 18:02 Urine WBC (Auto) 0 /HPF 09/21/20 18:02 Urine RBC (Auto) 0 /HPF 09/21/20 18:02 U Hyaline Cast (Auto) 1 /LPF 09/21/20 18:02 Urine Mucus (Auto) RARE /LPF 09/21/20 18:02 Urine Ascorbic Acid NEGATIVE (NEGATIVE) 09/21/20 18:02 09/21/20 15:41 Troponin I < 0.012 Impressions: Chest X-Ray 09/21/20 00:00 IMPRESSION: NO ACUTE RADIOGRAPHIC FINDING IN THE CHEST. Head CT 09/21/20 15:26 IMPRESSION: Old right lacunar infarction. No acute intracranial imaging findings. EVIDENCE OF ACUTE STROKE: NO. Head MRI 09/21/20 17:22 IMPRESSION: Chronic ischemic changes with an acute/subacute infarction in the right thalamus. EVIDENCE OF ACUTE STROKE: NO. Carotid Doppler Study 09/21/20 18:14 IMPRESSION: NO HEMODYNAMICALLY SIGNIFICANT STENOSIS. Plan Plan of Treatment: Follow-up with PCP 21 days DAPT and continue Plavix and stop aspirin Time Spent: Greater than 30 Minutes Stroke Is this a Stroke Patient?: Yes Stroke Pt being discharged on Anti-thrombolytic therapy?: Yes Stroke Pt being discharged on Anti-coagulation therapy?: No Reason(s) for not prescribing Anti-coagulation therapy:: Not indicated Stroke Pt being discharged on Statins?: Yes Acute Heart Failure Is this a Heart Failure Patient?: No
[2020-09-22] MEDS ORDERED: CLOPIDOGREL BISULFATE 75 MG TABLET PO SCH (18:45)
== END 2020-09-22 18:50 | disposition home or self-care (01) ==
LOC: ER 15:23 → EH 18:09 → 5 20:42
PROVIDERS: ADMIT Internal Medicine; ATTEND Internal Medicine
DX: I63.89 Other cerebral infarction (principal); R20.0 Anesthesia of skin; R20.2 Paresthesia of skin; R53.1 Weakness; R27.0 Ataxia, unspecified; R29.810 Facial weakness; R47.81 Slurred speech; E11.65 Type 2 diabetes mellitus with hyperglycemia; I10 Essential (primary) hypertension; E78.5 Hyperlipidemia, unspecified; E66.01 Morbid (severe) obesity due to excess calories; G47.33 Obstructive sleep apnea (adult) (pediatric); R29.701 NIHSS score 1; Z86.73 Personal history of transient ischemic attack (TIA), and cerebral infarction without residual deficits; Z79.82 Long term (current) use of aspirin; Z79.84 Long term (current) use of oral hypoglycemic drugs; Z68.38 Body mass index [BMI] 38.0-38.9, adult
CPT/HCPCS: 93005; 99285; 36415 ×2; 82962 ×2; 83735; 84100; 84443; 85025 ×2; 85610; 85730; 80048; 80053; 81001; 84484; 83036; 80061; 93306; 93880; 70551; 71045; 70450; 93010; 97530 ×2; 97116; 97162; 92522; 97165; G0378 ×3; J1650